=== PATIENT | male | born 1960 ===

== ENCOUNTER 2016-06-23 20:45 | Emergency (ER) | payer OTHER ==
[2016-06-23 21:01] VITALS: TEMP 98.5
[2016-06-23 21:05] VITALS: RESP 18; O2SAT 98
[2016-06-23 22:02] VITALS: BP 113/69; PULSE 78
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
== END 2016-06-23 22:29 | disposition home or self-care (01) ==
LOC: C.ER 20:45
DX: M25.511 Pain in right shoulder (principal); S20.211A Contusion of right front wall of thorax, initial encounter; Y08.89XA Assault by other specified means, initial encounter

== ENCOUNTER 2016-07-06 12:51 | Emergency (ER) | payer SELFPAY ==
[2016-07-06 13:18] VITALS: RESP 18
--- NOTE | 2016-07-06 14:08 | RAD ---
PROCEDURE: Right Knee Radiographs. HISTORY: fall/pain/swelling COMPARISON: None. FINDINGS: BONES: There is an acute nondisplaced fracture in the lateral tibial plateau. Bone alignment and mineralization are normal. There is an old avulsion fracture in the tibial tuberosity PICC JOINTS: Normal. No osteoarthritis. JOINT EFFUSION: There is a moderate suprapatellar joint effusion. . OTHER FINDINGS: None. IMPRESSION: Acute nondisplaced fracture in the lateral tibial plateau and moderate suprapatellar joint effusion.
--- NOTE | 2016-07-06 15:30 | C.PDOC ---
History Of Present Illness 56 year old male presents to the ED with complaints of right knee pain for the past 2 weeks. Patient states he fell 2 weeks ago and was seen here for shoulder pain however the pain to his knee developed after. He is able to walk and notes the knee became swollen and the pain has not improved which prompted his visit. Denies change in sensation, back pain, or any other complaints at this time. Chief Complaint (Nursing): Lower Extremity Problem/Injury History Per: Patient History/Exam Limitations: no limitations Onset/Duration Of Symptoms: Days Current Symptoms Are (Timing): Still Present Severity: Mild - Knee Description Of Injury: Fell Past Medical History Reviewed: Historical Data, Nursing Documentation, Vital Signs Vital Signs: Last Vital Signs Temp 98.5 F 07/06/16 16:33 Pulse 78 07/06/16 16:33 Resp 18 07/06/16 16:33 BP 124/78 07/06/16 16:33 Pulse Ox 97 07/06/16 17:41 Surgical History: Appendectomy Family History: States: Unknown Family Hx - Social History Hx Tobacco Use: Yes Hx Alcohol Use: No Hx Substance Use: No - Immunization History Hx Tetanus Toxoid Vaccination: Yes Hx Influenza Vaccination: No Hx Pneumococcal Vaccination: Yes Review Of Systems Except As Marked, All Systems Reviewed And Found Negative. Constitutional: Negative for: Fever, Chills Musculoskeletal: Positive for: Other (+Right knee pain). Negative for: Back Pain Neurological: Negative for: Weakness, Numbness Physical Exam - Physical Exam Appears: Non-toxic, No Acute Distress Skin: Normal Color, Warm, Dry Head: Atraumatic, Normacephalic Eye(s): bilateral: Normal Inspection Oral Mucosa: Moist Extremity: No Normal ROM (Difficulty bending right knee), Tenderness (+ tenderness to the right superior lateral knee), Calf Tenderness (+Right calf tenderness), Capillary Refill (< 2 seconds), No Deformity, Swelling (+Swelling to the right superior lateral knee) Pulses: Left Dorsalis Pedis: Normal, Right Dorsalis Pedis: Normal Neurological/Psych: Oriented x3, Normal Speech, Normal Cognition, Normal Sensation ED Course And Treatment O2 Sat by Pulse Oximetry: 97 (Room air) Pulse Ox Interpretation: Normal - Other Rad Left Knee X-ray X-Ray: Viewed By Me, Read By Radiologist Interpretation: Accession No. : [id number]. Patient Name / ID : LATONIA BERNARD / [id number]. Exam Date : 07/06/2016 13:37:59 ( Approved ). Study Comment : Sex / Age : M / 56Y. Creator : Gladis Borges MD. Dictator : Gladis Borges MD. Clock Smith : Bus Cleaner : Gladis Borges MD. Approver2 : Report Date : 07/06/2016 14:06:16. My Comment : . PROCEDURE: Right Knee Radiographs. HISTORY: fall/pain/swelling. COMPARISON: None. FINDINGS: BONES: There is an acute nondisplaced fracture in the lateral tibial plateau. Bone alignment and mineralization are normal. There is an old avulsion fracture in the tibial tuberosity PICC. JOINTS: Normal. No osteoarthritis. JOINT EFFUSION: There is a moderate suprapatellar joint effusion. . OTHER FINDINGS: None. IMPRESSION: Acute nondisplaced fracture in the lateral tibial plateau and moderate suprapatellar joint effusion. - CT Scan/US CT Right Knee Other Rad Studies (CT/US): Read By Radiologist, Radiology Report Reviewed CT/US Interpretation: Accession No. : [id number]. Patient Name / ID : LATONIA BERNARD / [id number]. Exam Date : 07/06/2016 16:16:02 ( Approved ). Study Comment : Sex / Age : M / 56Y. Creator : Kavon Koch MD. Dictator : Kavon Koch MD. Clock Smith : Bus Cleaner : Kavon Koch MD. Approver2 : Report Date : 07/06/2016 16:41:25. My Comment : . PROCEDURE : CT right knee. HISTORY: fracture. COMPARISON: None available. TECHNIQUE : 2.5 mm contiguous axial sections were acquired through the right knee. Sagittal and coronal images were reformatted from the axial scan. FINDINGS: There is no acute fracture identified. There is mild tricompartmental osteoarthritis. There are no articular erosions. There is a moderate suprapatellar bursal effusion. This may indicate internal derangement. IMPRESSION: No acute fracture. Mild tricompartmental osteoarthritis. Moderate suprapatellar joint effusion. Progress Note: Right Knee X-ray and Venous Duplex ordered and reviewed. Patient treated with Motrin. Venous Duplex negative for DVT by electronics tech. Case discussed with Dr. Singh (Ortho on-call) who requested a CT of the right knee and discharging the patient with a knee immoblizer and non-weight bearing crutches. Patietn can follow up at the clinic. Immobilizer applied by the CP and checked by me. Crutches given by PT and patient instructed on their proper use. Case discussed with Dr. Singh Disposition - Disposition Referrals: Gaby Singh MD [Staff Provider] - [facility] [Outside] [facility] [Outside] [facility] [Outside] Disposition: HOME/ ROUTINE Disposition Time: 15:30 Condition: STABLE Additional Instructions: Follow up with Orthopedist within 1-2 days. Return to ED if feel worse. Prescriptions: Hydrocodone/Acetaminophen [Hydrocodon-Acetaminophen 5-325] 1 each PO .Q4-6H #20 tablet Instructions: Knee Immobilizer (ED) - Clinical Impression Clinical Impression: Fracture of tibial plateau, closed - PA / ANALYSIS REPORTING DEVELOPER / Resident Statement MD/DO has reviewed & agrees with the documentation as recorded. - Scribe Statement The provider has reviewed the documentation as recorded by the Scribe Avtar Wadsworth. All medical record entries made by the Greyibjaclyn were at my direction and personally dictated by me. I have reviewed the chart and agree that the record accurately reflects my personal performance of the history, physical exam, medical decision making, and the department course for this patient. I have also personally directed, reviewed, and agree with the discharge instructions and disposition.
[2016-07-06 16:33] VITALS: BP 124/78; PULSE 78; TEMP 98.5
--- NOTE | 2016-07-06 16:42 | CT ---
PROCEDURE: CT right knee HISTORY: fracture COMPARISON: None available TECHNIQUE: 2.5 mm contiguous axial sections were acquired through the right knee. Sagittal and coronal images were reformatted from the axial scan. FINDINGS: There is no acute fracture identified. There is mild tricompartmental osteoarthritis. There are no articular erosions. There is a moderate suprapatellar bursal effusion. This may indicate internal derangement. IMPRESSION: No acute fracture. Mild tricompartmental osteoarthritis. Moderate suprapatellar joint effusion.
[2016-07-06 17:02] VITALS: O2SAT 97
--- NOTE | 2016-07-07 10:45 | VASCLAB ---
PROCEDURE: Right Lower Extremity Venous Duplex Exam. HISTORY: Pain and swelling PRIORS: None. TECHNIQUE: Right common femoral, femoral, popliteal and posterior tibial, peroneal and great saphenous veins were evaluated. Flow was assessed with color Doppler, compressibility, assessment of phasic flow and augmentation response. Report prepared by DEMETRIA Knight FINDINGS: RIGHT: 1. Common Femoral Vein: 1.1. Compressibility - Fully compressible: Thrombus - None: Flow - Phasic: Augmentation -Normal: Reflux - None. 2. Femoral Vein: 2.1. Compressibility - Fully compressible: Thrombus - None: Flow - Phasic: Augmentation -Normal: Reflux - None. 3. Popliteal Vein: 3.1. Compressibility - Fully compressible: Thrombus - None: Flow - Phasic: Augmentation -Normal: Reflux - None. 4. Posterior Tibial Vein: 4.1. Compressibility - Fully compressible: Thrombus - None: Flow - Phasic: Augmentation -Normal: Reflux - None. 5. Peroneal Vein: 5.1. Compressibility - Fully compressible: Thrombus - None: Flow - Phasic: Augmentation -Normal: Reflux - None. 6. Great Saphenous Vein: 6.1. Compressibility - Fully compressible: Thrombus -None: Flow - Phasic: Augmentation - Normal: Reflux - None. OTHER FINDINGS: IMPRESSION: No evidence of deep or superficial vein thrombosis of the right lower extremity with excellent venous flow. Normal valve function noted of the right side. Normal venous flow noted in the left common femoral vein.
== END 2016-07-06 16:34 | disposition home or self-care (01) ==
LOC: C.ER 12:51
DX: S82.144A Nondisplaced bicondylar fracture of right tibia, initial encounter for closed fracture (principal); W19.XXXA Unspecified fall, initial encounter
CPT/HCPCS: 73562; 73700; 93971; 97116; 97161; 99285; G8978; G8979; G8980

== ENCOUNTER 2016-10-11 12:26 | Emergency (ER) | payer OTHER ==
[2016-10-11 12:42] VITALS: O2SAT 97
[2016-10-11] MEDS ORDERED: Naproxen 550 mg Tab PO STA (13:16)
[2016-10-11] MEDS ORDERED: Naproxen 550 mg Tab PO ONE (13:19)
--- NOTE | 2016-10-11 13:48 | C.PDOC ---
History Of Present Illness 56 y/o male presents to ED with complaints of bilateral knee pain constant for 1 month worse with ambulation. Patient denies fever, falls, injuries and admits to not seeing PMD or taking pain medications. Time Seen by Provider: 10/11/16 13:00 Chief Complaint (Nursing): Lower Extremity Problem/Injury History Per: Patient History/Exam Limitations: no limitations Onset/Duration Of Symptoms: Days Current Symptoms Are (Timing): Still Present Past Medical History Reviewed: Historical Data, Nursing Documentation, Vital Signs Vital Signs: Last Vital Signs Temp 97.7 F 10/11/16 14:30 Pulse 77 10/11/16 14:30 Resp 18 10/11/16 14:30 BP 108/73 10/11/16 14:30 Pulse Ox 97 10/11/16 14:30 Surgical History: Appendectomy Family History: States: Unknown Family Hx - Social History Hx Tobacco Use: Yes Hx Alcohol Use: No Hx Substance Use: No - Immunization History Hx Tetanus Toxoid Vaccination: Yes Hx Influenza Vaccination: Yes Hx Pneumococcal Vaccination: Yes Review Of Systems Except As Marked, All Systems Reviewed And Found Negative. Constitutional: Negative for: Fever, Chills Musculoskeletal: Positive for: Leg Pain Skin: Negative for: Rash Neurological: Negative for: Weakness, Numbness Physical Exam - Physical Exam Appears: Other (Comfortable) Skin: Normal Color, Warm, No Rash Head: Atraumatic, Normacephalic Cardiovascular: Rhythm Regular, No Murmur Respiratory: Normal Breath Sounds, No Rales, No Rhonchi, No Wheezing Extremity: Tenderness (mild tenderness to palpation bilateral patellar area), Capillary Refill (<2 seconds), No Deformity, No Swelling Pulses: Left Dorsalis Pedis: Normal, Right Dorsalis Pedis: Normal Neurological/Psych: Oriented x3, Normal Motor, Normal Sensation ED Course And Treatment O2 Sat by Pulse Oximetry: 97 (RA) Pulse Ox Interpretation: Normal - Other Rad knee X-Ray: Viewed By Me, Read By Radiologist Interpretation: Accession No. : [id number]. Patient Name / ID : LATONIA BERNARD / [id number]. Exam Date : 10/11/2016 13:24:03 ( Approved ). Study Comment : Sex / Age : M / 56Y. Creator : Yoselin Garcia MD. Dictator : Yoselin Garcia MD. [employer] : Chairperson Anesthesiology : Yoselin Garcia MD. Approver2 : Report Date : 10/11/2016 14:22:12. My Comment : . PROCEDURE: Bilateral Knee Radiographs. HISTORY: B/L knee pain. COMPARISON: None available. FINDINGS: BONES: Right Knee: No acute displaced fracture identified. Left Knee: No acute displaced fracture identified. JOINTS: Right Knee: No dislocation. Joint space narrowing most prominent laterally. Left knee: No dislocation. Joint space narrowing most prominent laterally. SOFT TISSUES: Right Knee: Normal. Left Knee: Normal. JOINT EFFUSION: Right Knee: Small to moderate suprapatellar joint effusion. Left Knee: Small to moderate suprapatellar joint effusion. OTHER FINDINGS: None. IMPRESSION: Degenerative changes. Joint space narrowing appears most prominent laterally, both left and right knees. Bilateral small to moderate suprapatellar joint effusions. Progress Note: Patient given Naproxen and instructed to follow up with Ortho Disposition Counseled Patient/Family Regarding: Studies Performed, Diagnosis, Need For Followup, Rx Given - Disposition Referrals: [facility] [Outside] [facility] [Outside] [facility] [Outside] Hay Ruano III, MD [Staff Provider] - Disposition: HOME/ ROUTINE Disposition Time: 14:25 Condition: STABLE Additional Instructions: FOLLOW UP WITH ORTHPEDICS WITHIN 1 WEEK USE MEDICATIONS FOR PAIN NEEDED RETURN TO ER IF SYMPTOMS WORSEN Prescriptions: Naproxen [Naprosyn Tab] 375 mg PO BID PRN #20 tab PRN Reason: pain Instructions: Osteoarthritis (ED) Print Language: SYRIAC - Clinical Impression Clinical Impression: Arthritis of knee - Scribe Statement The provider has reviewed the documentation as recorded by the Veronica Ruano All medical record entries made by the Greyibjaclyn were at my direction and personally dictated by me. I have reviewed the chart and agree that the record accurately reflects my personal performance of the history, physical exam, medical decision making, and the department course for this patient. I have also personally directed, reviewed, and agree with the discharge instructions and disposition.
--- NOTE | 2016-10-11 14:24 | RAD ---
PROCEDURE: Bilateral Knee Radiographs. HISTORY: B/L knee pain COMPARISON: None available FINDINGS: BONES: Right Knee: No acute displaced fracture identified. Left Knee: No acute displaced fracture identified. JOINTS: Right Knee: No dislocation. Joint space narrowing most prominent laterally. Left knee: No dislocation. Joint space narrowing most prominent laterally. SOFT TISSUES: Right Knee: Normal. Left Knee: Normal. JOINT EFFUSION: Right Knee: Small to moderate suprapatellar joint effusion. Left Knee: Small to moderate suprapatellar joint effusion. OTHER FINDINGS: None. IMPRESSION: Degenerative changes. Joint space narrowing appears most prominent laterally, both left and right knees. Bilateral small to moderate suprapatellar joint effusions.
[2016-10-11 14:44] VITALS: BP 108/73; PULSE 77; RESP 18; TEMP 97.7
== END 2016-10-11 14:30 | disposition home or self-care (01) ==
LOC: C.ER 12:26
DX: M13.862 Other specified arthritis, left knee (principal); M13.861 Other specified arthritis, right knee

== ENCOUNTER 2017-11-06 17:37 | Emergency (ER) | payer OTHER ==
[2017-11-06 18:15] VITALS: O2SAT 98
--- NOTE | 2017-11-06 19:28 | C.PDOC ---
History Of Present Illness 57 y/o male presents to the emergency department with complaints of a lesion over the medial aspect of his right forearm after working in a garden earlier today. Denies fever or chills. Time Seen by Provider: 11/06/17 19:28 Chief Complaint (Nursing): Abnormal Skin Integrity History Per: Patient History/Exam Limitations: no limitations Onset/Duration Of Symptoms: Hrs Current Symptoms Are (Timing): Still Present Location Of Injury: Right: Forearm Quality Of Symptoms: Other (Lesions) Severity: Mild Pain Scale Rating Of: 3 Recent travel outside of the [place]: No Additional History Per: Patient Past Medical History Reviewed: Historical Data, Nursing Documentation, Vital Signs Vital Signs: Last Vital Signs Temp 98.3 F 11/06/17 18:12 Pulse 75 11/06/17 18:12 Resp 18 11/06/17 18:12 BP 121/74 11/06/17 18:12 Pulse Ox 98 11/06/17 20:39 Surgical History: Appendectomy Family History: States: No Known Family Hx - Social History Hx Tobacco Use: Yes Hx Alcohol Use: No Hx Substance Use: No - Immunization History Hx Tetanus Toxoid Vaccination: Yes Hx Influenza Vaccination: Yes Hx Pneumococcal Vaccination: Yes Review Of Systems Constitutional: Negative for: Fever, Chills Cardiovascular: Negative for: Chest Pain Respiratory: Negative for: Shortness of Breath Gastrointestinal: Negative for: Nausea, Vomiting Skin: Positive for: Lesions (Medial aspect of right forearm). Negative for: Rash Neurological: Negative for: Weakness, Numbness Physical Exam - Physical Exam Appears: Non-toxic Skin: Warm, Dry, Other (Three 1.5x2cm vesicles with dried exudates over the medial aspect of right forearm ) Head: Normacephalic Eye(s): bilateral: Normal Inspection Extremity: Capillary Refill (less than 2 seconds), Other (full ROM of right forearm) Pulses: Left Radial: Normal, Right Radial: Normal Neurological/Psych: Oriented x3 ED Course And Treatment - Laboratory Results Result Diagrams: 11/06/17 20:45 11/06/17 20:45 O2 Sat by Pulse Oximetry: 98 (RA) Pulse Ox Interpretation: Normal Progress Note: Labs ordered. solumedrol administered. Medical Decision Making Medical Decision Making: Upon provider reevaluation patient is feeling better, is medically stable, and requires no further treatment in the ED at this time. Patient will be discharged home with Rx for prednisone . Counseling was provided and all questions were answered regarding diagnosis and need for follow up with dr sandoval. There is agreement to discharge plan. Return if symptoms persist or worsen. Disposition Counseled Patient/Family Regarding: Studies Performed, Diagnosis, Need For Followup, Rx Given - Disposition Referrals: Gini Sandoval MD [Medical Doctor] - Disposition: HOME/ ROUTINE Disposition Time: 19:28 Condition: FAIR Additional Instructions: Please return if symptoms recur Prescriptions: Prednisone [Deltasone] 20 mg PO DAILY #5 tablet Instructions: Poison Deepti, Poison [place], Poison [place] (DC) Forms: [employer] (Citizen [place] - Clinical Impression Clinical Impression: Skin lesion, Poison oak dermatitis - Scribe Statement The provider has reviewed the documentation as recorded by the Veronica Mcgarry Provider Attestation: All medical record entries made by the Veronica were at my direction and personally dictated by me. I have reviewed the chart and agree that the record accurately reflects my personal performance of the history, physical exam, medical decision making, and the department course for this patient. I have also personally directed, reviewed, and agree with the discharge instructions and disposition.
[2017-11-06 20:50] LABS: BASO # 0.1 K/uL (0.0-0.2); BASO % 0.7 % (0.0-2.0); EOS # 0.4 K/uL (0.0-0.7); EOS % 3.6 % (0.0-4.0); HEMOGLOBIN 15.1 g/dL (12.0-18.0); LYMPH # 4.5 K/uL (1.0-4.3); LYMPH % 40.4 % (20.0-40.0); MEAN CELL VOLUME 95.2 fL (80.0-94.0); MEAN CORPUSCULAR HEMOGLOBIN 32.2 pg (27.0-31.0); MEAN CORPUSCULAR HGB CONC 33.8 g/dL (33.0-37.0); MEAN PLATELET VOLUME 7.5 fL (7.2-11.7); MONO # 0.7 K/uL (0.0-0.8); MONO % 6.2 % (0.0-10.0); NEUT # 5.4 K/uL (1.8-7.0); NEUT % 49.1 % (50.0-75.0); NRBC % 0.1 % (0.0-2.0); RBC 4.68 Mil/uL (4.40-5.90); RED CELL DISTRIBUTION WIDTH 13.3 % (11.5-14.5); WHITE BLOOD COUNT 11.1 K/uL (4.8-10.8)
[2017-11-06 21:06] LABS: BLOOD UREA NITROGEN 19 mg/dL (9-20); CALCIUM 8.9 mg/dl (8.6-10.4); GFR AFRICAN-AMERICAN > 60; GFR NON-AFRICAN AMERICAN > 60
[2017-11-06 21:44] VITALS: BP 120/73; PULSE 76; RESP 17; TEMP 98.2
== END 2017-11-06 21:48 | disposition home or self-care (01) ==
LOC: C.ER 17:37
DX: L23.7 Allergic contact dermatitis due to plants, except food (principal); L98.9 Disorder of the skin and subcutaneous tissue, unspecified; Z72.0 Tobacco use

== ENCOUNTER 2017-11-11 15:44 | Emergency (ER) | payer OTHER ==
[2017-11-11 15:53] VITALS: O2SAT 98
--- NOTE | 2017-11-11 16:48 | C.PDOC ---
History Of Present Illness 57 year old male presents to ED complaining of abdominal pain to left upper quadrant. Patient reports the pain occurs 45 minutes after each meal for the past 3 weeks. He states he is afraid to eat because of the pain that will come 45 minutes afterwards. Denies nausea, vomiting, diarrhea, dysuria, fever, hematuria, shortness of breath. Time Seen by Provider: 11/11/17 16:05 Chief Complaint (Nursing): Abdominal Pain History Per: Patient History/Exam Limitations: no limitations Onset/Duration Of Symptoms: Days Current Symptoms Are (Timing): Still Present Location Of Pain/Discomfort: LUQ Associated Symptoms: denies: Fever, Nausea, Vomiting, Diarrhea Recent travel outside of the [place]: No Past Medical History Reviewed: Historical Data, Nursing Documentation, Vital Signs Vital Signs: Last Vital Signs Temp 98.6 F 11/11/17 15:51 Pulse 82 11/11/17 15:51 Resp 18 11/11/17 15:51 BP 102/61 11/11/17 15:51 Pulse Ox 98 11/11/17 16:55 Surgical History: Appendectomy Family History: States: No Known Family Hx - Social History Hx Tobacco Use: Yes Hx Alcohol Use: No Hx Substance Use: No - Immunization History Hx Tetanus Toxoid Vaccination: Yes Hx Influenza Vaccination: Yes Hx Pneumococcal Vaccination: Yes Review Of Systems Except As Marked, All Systems Reviewed And Found Negative. Constitutional: Negative for: Fever Respiratory: Negative for: Shortness of Breath Gastrointestinal: Positive for: Abdominal Pain (left upper quadrant). Negative for: Nausea, Vomiting, Diarrhea Genitourinary: Negative for: Dysuria, Hematuria Neurological: Negative for: Weakness, Numbness Physical Exam - Physical Exam Appears: Non-toxic, No Acute Distress Skin: Warm, Dry Head: Atraumatic, Normacephalic Eye(s): bilateral: Normal Inspection, PERRL, EOMI Oral Mucosa: Moist Neck: Supple Chest: Symmetrical Cardiovascular: Rhythm Regular Respiratory: Normal Breath Sounds Gastrointestinal/Abdominal: Soft, No Tenderness Extremity: Normal ROM Neurological/Psych: Oriented x3, Normal Speech, Normal Motor, Normal Sensation Gait: Steady ED Course And Treatment - Laboratory Results Result Diagrams: 11/11/17 17:13 11/11/17 17:13 O2 Sat by Pulse Oximetry: 98 (RA) Pulse Ox Interpretation: Normal Medical Decision Making Medical Decision Making: Impression: abdominal pain Patient with no pain throughout ED course. Exam is benign. Labs done, leukocytosis noted however other labs are within normal limits. Rx written for Pepcid and patient referred to GI, as he may have GERD or gastric ulcer. Results and plan discussed with patient who verbalizes understanding. Disposition - Disposition Referrals: Oleg Mcdermott MD [Staff Provider] - Disposition: HOME/ ROUTINE Disposition Time: 18:48 Condition: GOOD Additional Instructions: JOANA LINCOLN, thank you for letting us take care of you today. Your provider was Rita Nolen MD and you were treated for ABD PAIN. The emergency medical care you received today was directed at your acute symptoms. If you were prescribed any medication, please fill it and take as directed. It may take several days for your symptoms to resolve. Return to the Emergency Department if your symptoms worsen, do not improve, or if you have any other problems. Please contact your doctor or call one of the physicians/clinics you have been referred to that are listed on the Patient Visit Information form that is included in your discharge packet. Bring any paperwork you were given at discharge with you along with any medications you are taking to your follow up visit. Our treatment cannot replace ongoing medical care by a primary care provider outside of the emergency department. Thank you for allowing the [facility] team to be part of your care today. If you had an X-Ray or CT scan: A Radiologist will review the ED reading if any change in treatment is needed we will contact you. If you had a blood, urine, or wound culture: It will take several days for the results, if any change in treatment is needed we will contact you. If you had an STI test: It will take 48 hours for the results. Please call after 1 week if you have not heard back. Prescriptions: Famotidine [Pepcid] 40 mg PO DAILY #20 tablet Instructions: Gastric Ulcer (DC) Forms: [employer] (Mohawk) - Clinical Impression Clinical Impression: LUQ abdominal pain - Scribe Statement The provider has reviewed the documentation as recorded by the Scribe Patric Celestino Provider Attestation: JOANA LINCOLN, thank you for letting us take care of you today. Your provider was Rita Nolen MD and you were treated for ABD PAIN. The emergency medical care you received today was directed at your acute symptoms. If you were prescribed any medication, please fill it and take as directed. It may take several days for your symptoms to resolve. Return to the Emergency Department if your symptoms worsen, do not improve, or if you have any other problems. Please contact your doctor or call one of the physicians/clinics you have been referred to that are listed on the Patient Visit Information form that is included in your discharge packet. Bring any paperwork you were given at discharge with you along with any medications you are taking to your follow up visit. Our treatment cannot replace ongoing medical care by a primary care provider outside of the emergency department. Thank you for allowing the [facility] team to be part of your care today. If you had an X-Ray or CT scan: A Radiologist will review the ED reading if any change in treatment is needed we will contact you. If you had a blood, urine, or wound culture: It will take several days for the results, if any change in treatment is needed we will contact you. If you had an STI test: It will take 48 hours for the results. Please call after 1 week if you have not heard back.
[2017-11-11 17:20] LABS: BASO # 0.1 K/uL (0.0-0.2); BASO % 0.5 % (0.0-2.0); EOS # 0.3 K/uL (0.0-0.7); EOS % 2.3 % (0.0-4.0); HEMOGLOBIN 14.7 g/dL (12.0-18.0); LYMPH # 3.7 K/uL (1.0-4.3); LYMPH % 27.2 % (20.0-40.0); MEAN CELL VOLUME 94.8 fL (80.0-94.0); MEAN CORPUSCULAR HEMOGLOBIN 32.5 pg (27.0-31.0); MEAN CORPUSCULAR HGB CONC 34.3 g/dL (33.0-37.0); MEAN PLATELET VOLUME 7.4 fL (7.2-11.7); MONO # 0.5 K/uL (0.0-0.8); MONO % 3.8 % (0.0-10.0); NEUT % 66.2 % (50.0-75.0); RBC 4.51 Mil/uL (4.40-5.90); RED CELL DISTRIBUTION WIDTH 13.8 % (11.5-14.5); WHITE BLOOD COUNT 13.6 K/uL (4.8-10.8)
[2017-11-11 17:37] LABS: BLOOD UREA NITROGEN 19 mg/dL (9-20); GFR NON-AFRICAN AMERICAN > 60; LIPASE 68 U/L (23-300)
[2017-11-11 18:50] VITALS: BP 138/89; PULSE 84; RESP 20; TEMP 98.2
== END 2017-11-11 19:33 | disposition home or self-care (01) ==
LOC: C.ER 15:44
DX: R10.12 Left upper quadrant pain (principal)

== ENCOUNTER 2018-02-03 08:14 | Emergency (ER) | payer OTHER ==
[2018-02-03 08:34] VITALS: PULSE 63; RESP 16
[2018-02-03] MEDS ORDERED: Sodium Chloride 0.9% 1,000 ML IV ONE (08:39)
--- NOTE | 2018-02-03 08:46 | C.PDOC ---
History Of Present Illness 57 y/o male, with no significant PMHx, presents to ED for evaluation of dizziness and lightheadedness for the past 2 weeks. Notes dizziness is worse when standing up. Pt denies being seen by his PMD for these symptoms. Otherwise, denies headache, fever, or any other associated symptoms at this time. Time Seen by Provider: 02/03/18 08:37 Chief Complaint (Nursing): Dizziness/Lightheaded History Per: Patient History/Exam Limitations: no limitations Onset/Duration Of Symptoms: Days Current Symptoms Are (Timing): Still Present Recent travel outside of the [place]: No Additional History Per: Patient Past Medical History Reviewed: Historical Data, Nursing Documentation, Vital Signs Vital Signs: Last Vital Signs Temp 97.9 F 02/03/18 08:32 Pulse 63 02/03/18 08:32 Resp 16 02/03/18 08:32 BP 118/67 02/03/18 08:32 Pulse Ox 95 02/03/18 08:32 Surgical History: Appendectomy Family History: States: Unknown Family Hx - Social History Hx Tobacco Use: Yes Hx Alcohol Use: No Hx Substance Use: No - Immunization History Hx Tetanus Toxoid Vaccination: Yes Hx Influenza Vaccination: Yes Hx Pneumococcal Vaccination: Yes Review Of Systems Except As Marked, All Systems Reviewed And Found Negative. Constitutional: Negative for: Fever, Chills Cardiovascular: Positive for: Light Headedness. Negative for: Chest Pain, Palpitations Respiratory: Negative for: Cough, Shortness of Breath Gastrointestinal: Negative for: Nausea, Vomiting, Abdominal Pain Neurological: Positive for: Dizziness. Negative for: Weakness, Numbness, Headache Physical Exam - Physical Exam Appears: Non-toxic, No Acute Distress Skin: Normal Color, Warm, Dry Head: Atraumatic, Normacephalic Eye(s): bilateral: Normal Inspection Oral Mucosa: Moist Neck: Normal ROM, Supple Chest: Symmetrical Cardiovascular: Rhythm Regular, No Murmur Respiratory: Normal Breath Sounds, No Rales, No Rhonchi, No Wheezing Gastrointestinal/Abdominal: Soft, No Tenderness Extremity: Normal ROM, No Pedal Edema Neurological/Psych: Oriented x3, Normal Speech, Normal Cognition, No Other (no focal deficits) ED Course And Treatment - Laboratory Results Result Diagrams: 02/03/18 09:10 02/03/18 09:10 ECG: Interpreted By Me, Viewed By Me ECG Rhythm: Sinus Rhythm ECG Interpretation: Normal Interpretation Of ECG: No ST/T wave changes. Rate From EC (bpm) O2 Sat by Pulse Oximetry: 95 (RA) Pulse Ox Interpretation: Normal Medical Decision Making Medical Decision Making: ro metaoblic infectious cardiac intrancial eitology Plan: Blood work Urinalysis EKG IV fluids On re-eval, pt is resting comfortably, no acute distress. He reports feeling better. Pt is ambulatory in the ER, no signs of discomfort. pt notified of ct findings advise outpt fu with neuro. agrees to fu. return precuaitons advised. Disposition - Disposition Referrals: [facility] [Outside] [facility] [Outside] Ruslan Hilario MD [Staff Provider] - Alex Mena MD [Staff Provider] - Disposition: HOME/ ROUTINE Disposition Time: 10:30 Condition: STABLE Additional Instructions: please return to er with worsening symptoms or concenrs. please see your doctor/clinic. Instructions: Dizziness, Nonvertigo, (DC) Forms: [employer] (Cameroonian) - Clinical Impression Clinical Impression: Dizziness - Scribe Statement The provider has reviewed the documentation as recorded by the Scribe KP All medical record entries made by the Scribe were at my direction and pers onally dictated by me. I have reviewed the chart and agree that the record accurately reflects my personal performance of the history, physical exam, medical decision making, and the department course for this patient. I have also personally directed, reviewed, and agree with the discharge instructions and disposition.
[2018-02-03 09:15] LABS: BASO # 0.1 K/uL (0.0-0.2); BASO % 1.2 % (0.0-2.0); EOS # 0.3 K/uL (0.0-0.7); EOS % 3.3 % (0.0-4.0); HEMOGLOBIN 14.6 g/dL (12.0-18.0); LYMPH % 34.5 % (20.0-40.0); MEAN CELL VOLUME 95.5 fL (80.0-94.0); MEAN CORPUSCULAR HEMOGLOBIN 32.9 pg (27.0-31.0); MEAN CORPUSCULAR HGB CONC 34.4 g/dL (33.0-37.0); MEAN PLATELET VOLUME 7.8 fL (7.2-11.7); MONO # 0.6 K/uL (0.0-0.8); MONO % 7.4 % (0.0-10.0); NEUT # 4.6 K/uL (1.8-7.0); NEUT % 53.6 % (50.0-75.0); RBC 4.43 Mil/uL (4.40-5.90); RED CELL DISTRIBUTION WIDTH 13.7 % (11.5-14.5); WHITE BLOOD COUNT 8.6 K/uL (4.8-10.8)
[2018-02-03 09:23] LABS: PROTHROMBIN TIME 11.3 SECONDS (9.7-12.2)
[2018-02-03 09:41] LABS: ALB/GLOB RATIO 1.2 (1.0-2.1); ALBUMIN 3.7 g/dL (3.5-5.0); ALT/SGPT 32 U/L (21-72); AST/SGOT 22 U/L (17-59); BLOOD UREA NITROGEN 24 mg/dL (9-20); CALCIUM 8.3 mg/dl (8.6-10.4); GFR NON-AFRICAN AMERICAN > 60
[2018-02-03 09:49] LABS: SQUAMOUS EPITHIAL < 1 /hpf (0-5); URINE BILIRUBIN NEGATIVE (NEGATIVE); URINE BLOOD 2+ (NEGATIVE); URINE CLARITY Clear (Clear); URINE COLOR Yellow (YELLOW); URINE GLUCOSE (UA) NORMAL (Normal); URINE LEUKOCYTE ESTERASE NEG Leu/uL (Negative); URINE PROTEIN NEGATIVE (NEGATIVE); URINE UROBILINOGEN NORMAL mg/dL (0.2-1.0)
[2018-02-03 10:41] VITALS: BP 106/77; TEMP 98.4
--- NOTE | 2018-02-03 10:52 | CT ---
Date of service: 02/03/2018 PROCEDURE: CT HEAD WITHOUT CONTRAST. HISTORY: dizziness COMPARISON: None available. TECHNIQUE: Axial computed tomography images were obtained through the head/brain without intravenous contrast. Radiation dose: Total exam DLP = 1166.57 mGy-cm. This CT exam was performed using one or more of the following dose reduction techniques: Automated exposure control, adjustment of the mA and/or kV according to patient size, and/or use of iterative reconstruction technique. FINDINGS: HEMORRHAGE: No acute parenchymal, subarachnoid or extra-axial hemorrhage.. BRAIN: There appears to be some minimal chronic periventricular white matter ischemic changes that extend peripherally into the deep white matter both cerebral hemispheres. Prominent right wing cisterna magna. VENTRICLES: No obstructive hydrocephalus. CALVARIUM: Calvarium intact PARANASAL SINUSES: Unremarkable as visualized. No significant inflammatory changes. MASTOID AIR CELLS: Unremarkable as visualized. No inflammatory changes. OTHER FINDINGS: None. IMPRESSION: No acute intracranial hemorrhage. Mild chronic periventricular white matter ischemic changes. Prominent right wing cisterna magna.
[2018-02-03 11:30] VITALS: O2SAT 95
== END 2018-02-03 11:49 | disposition home or self-care (01) ==
LOC: C.ER 08:14
DX: R42 Dizziness and giddiness (principal); Z72.0 Tobacco use
CPT/HCPCS: 70450; 80053; 81001; 84484; 85025; 85610; 85730; 96360; 99285; J7030

== ENCOUNTER 2018-06-29 09:02 | Emergency (ER) | payer OTHER ==
[2018-06-29 09:18] VITALS: RESP 18
--- NOTE | 2018-06-29 10:56 | C.PDOC ---
History Of Present Illness 58 year old male presents to ED with complaint of pain to the right side of his tongue. Patient states that he thinks that its a cyst and it is painful to eat. Patient denies fever, chills, throat swelling, and difficulty swallowing. Time Seen by Provider: 06/29/18 09:07 Chief Complaint (Nursing): Dental Pain History Per: Patient History/Exam Limitations: no limitations Current Symptoms Are (Timing): Still Present Quality: Positive for: "Pain" Past Medical History Reviewed: Historical Data, Nursing Documentation, Vital Signs Vital Signs: Last Vital Signs Temp 98 F 06/29/18 09:15 Pulse 74 06/29/18 09:15 Resp 18 06/29/18 09:15 BP 107/77 06/29/18 09:15 Pulse Ox 98 06/29/18 09:15 - Medical History PMH: No Chronic Diseases Surgical History: Appendectomy Family History: States: Unknown Family Hx - Social History Hx Tobacco Use: Yes Hx Alcohol Use: No Hx Substance Use: No - Immunization History Hx Tetanus Toxoid Vaccination: Yes Hx Influenza Vaccination: Yes Hx Pneumococcal Vaccination: Yes Review Of Systems Constitutional: Negative for: Fever, Chills, Weakness ENT: Negative for: Throat Swelling, Other (difficulty swallowing ) Neurological: Negative for: Weakness, Numbness, Dizziness Physical Exam - Physical Exam Appears: Well, Non-toxic, No Acute Distress Skin: Normal Color, Warm, Dry Head: Atraumatic, Normacephalic Tongue: Lesions (ulcerative lesion on the right side of the tongue that touches the teeth, no active bleeding, no signs of abscess), No Bleeding Teeth: Other (poor dentition, in the right side there are large cavities present with sharp edges to the 1st, 2nd, and 3rd molar ) Neck: Normal ROM, Supple Chest: Symmetrical, No Deformity Cardiovascular: Rhythm Regular, No Murmur Respiratory: No Accessory Muscle Use, No Rales, No Rhonchi, No Wheezing Extremity: Capillary Refill (<2 seconds) Neurological/Psych: Oriented x3, Normal Speech, Normal Cognition ED Course And Treatment O2 Sat by Pulse Oximetry: 98 (in RA) Progress Note: Patient given Cleocin PO. Patient given prescription for antibiotics. Upon re-eval, patient is resting comfortably, in no acute distress, and stable for discharge. Patient is advised to make an appointment with his dentist. Patient advised to return to ED if symptoms persist or worsen. Disposition - Disposition Disposition: HOME/ ROUTINE Disposition Time: 10:53 Condition: STABLE Additional Instructions: Follow up with your PMD/dentist within 1-2 days. return to ED if feel worse. Prescriptions: Clindamycin [Cleocin] 300 mg PO Q6 #28 cap Lidocaine 2% Viscous 1 ml MM .Q4-6H #1 bottle Chlorhexidine 0.12% [Peridex] 15 ml PO BID #1 bottle Instructions: Mouth Sores Forms: [employer] (Ukrainian) - Clinical Impression Clinical Impression: Dental caries, Leukoplakia of tongue - PA / ADVERTISING INTERN / Resident Statement MD/DO has reviewed & agrees with the documentation as recorded. (Ginger Herrera) - Scribe Statement The provider has reviewed the documentation as recorded by the Scribe (Ginger Herrera) All medical record entries made by the Scribe were at my direction and personally dictated by me. I have reviewed the chart and agree that the record accurately reflects my personal performance of the history, physical exam, medical decision making, and the department course for this patient. I have also personally directed, reviewed, and agree with the discharge instructions and disposition.
[2018-06-29 11:02] VITALS: BP 112/76; PULSE 68; TEMP 98.4
[2018-06-29 11:15] VITALS: O2SAT 98
== END 2018-06-29 11:03 | disposition home or self-care (01) ==
LOC: C.ER 09:02
DX: K02.9 Dental caries, unspecified (principal); K13.21 Leukoplakia of oral mucosa, including tongue; F17.210 Nicotine dependence, cigarettes, uncomplicated

== ENCOUNTER 2018-07-02 08:55 | Emergency (ER) | payer OTHER ==
[2018-07-02 09:08] VITALS: PULSE 86; RESP 18
--- NOTE | 2018-07-02 10:28 | C.PDOC ---
History Of Present Illness 58 y/o male presents to the ER complaining of new onset of midsternal chest pain which began when he woke up at 8:30 am. Patient states that the episode of pain lasted several minutes. Patient reports that the pain spontaneously resolved.He notes that he is now asymptomatic. He states that he is not on chronic medications. Currently, patient denies having chest pain, shortness of breath, fever,chills, nausea, vomiting, and leg swelling. Of note, patient was evaluated for dental infection in [facility] ER on 06/29/18 and he was discharged with prescriptions for Clindamycin and Viscous Lidocaine. Time Seen by Provider: 07/02/18 09:55 Chief Complaint (Nursing): Chest Pain History Per: Patient History/Exam Limitations: no limitations Onset/Duration Of Symptoms: Hrs Current Symptoms Are (Timing): Gone Severity: Moderate Past Medical History Reviewed: Historical Data, Nursing Documentation, Vital Signs Vital Signs: Last Vital Signs Temp 97.8 F 07/02/18 09:06 Pulse 86 07/02/18 09:06 Resp 18 07/02/18 09:06 BP 114/79 07/02/18 09:06 Pulse Ox 97 07/02/18 09:06 - Medical History PMH: No Chronic Diseases Surgical History: Appendectomy Family History: States: No Known Family Hx - Social History Hx Tobacco Use: Yes Hx Alcohol Use: No Hx Substance Use: No - Immunization History Hx Tetanus Toxoid Vaccination: Yes Hx Influenza Vaccination: Yes Hx Pneumococcal Vaccination: Yes Review Of Systems Except As Marked, All Systems Reviewed And Found Negative. Constitutional: Negative for: Fever, Chills Cardiovascular: Positive for: Chest Pain (currently resolved) Respiratory: Negative for: Shortness of Breath Gastrointestinal: Negative for: Nausea, Vomiting Physical Exam - Physical Exam Appears: Non-toxic, No Acute Distress Skin: Normal Color, Warm, Dry Head: Atraumatic, Normacephalic Eye(s): bilateral: Normal Inspection Nose: Normal Oral Mucosa: Moist Chest: Symmetrical, No Tenderness Cardiovascular: Rhythm Regular Respiratory: Normal Breath Sounds, No Rales, No Rhonchi, No Wheezing, Other (NARD) Neurological/Psych: Oriented x3, Normal Speech ED Course And Treatment - Laboratory Results Result Diagrams: 07/02/18 10:43 07/02/18 10:43 ECG: Interpreted By Me, Viewed By Me ECG Rhythm: Sinus Rhythm Rate From EC O2 Sat by Pulse Oximetry: 97 (RA) Pulse Ox Interpretation: Normal - Radiology CXR: Interpreted by Me, Viewed By Me CXR Interpretation: Yes: No Acute Disease, Other (unchanged from prior) Medical Decision Making Medical Decision Making: Plan: --Labs --ECG --CXR Disposition Counseled Patient/Family Regarding: Diagnosis, Need For Followup, Smoking Cessation - Disposition Referrals: [facility] [Outside] [facility] [Outside] Disposition: HOME/ ROUTINE Disposition Time: 11:34 Condition: GOOD Additional Instructions: FOLLOW UP WITH YOUR PMD OR CLINIC FOR FURTHER EVALUATION. RETURN IF RECURRENT/WORSENING SYMPTOMS. Instructions: Chest Pain (DC) Forms: [employer] (Setswana) - Clinical Impression Clinical Impression: Chest pain - Scribe Statement The provider has reviewed the documentation as recorded by the Greyibjaclyn Alfredo Provider Attestation: All medical record entries made by the Scribe were at my direction and personally dictated by me. I have reviewed the chart and agree that the record accurately reflects my personal performance of the history, physical exam, medical decision making, and the department course for this patient. I have also personally directed, reviewed, and agree with the discharge instructions and disposition.
[2018-07-02 10:48] LABS: BASO # 0.1 K/uL (0.0-0.2); EOS # 0.2 K/uL (0.0-0.7); EOS % 1.8 % (0.0-4.0); HEMOGLOBIN 15.3 g/dL (12.0-18.0); LYMPH # 2.9 K/uL (1.0-4.3); LYMPH % 27.1 % (20.0-40.0); MEAN CORPUSCULAR HEMOGLOBIN 32.7 pg (27.0-31.0); MEAN CORPUSCULAR HGB CONC 33.7 g/dL (33.0-37.0); MEAN PLATELET VOLUME 7.4 fL (7.2-11.7); MONO # 0.7 K/uL (0.0-0.8); MONO % 6.9 % (0.0-10.0); NEUT # 6.7 K/uL (1.8-7.0); NEUT % 63.2 % (50.0-75.0); NRBC % 0.1 % (0.0-2.0); RBC 4.68 Mil/uL (4.40-5.90); WHITE BLOOD COUNT 10.6 K/uL (4.8-10.8)
[2018-07-02 11:00] LABS: ALB/GLOB RATIO 1.6 (1.0-2.1); ALBUMIN 4.6 g/dL (3.5-5.0); ALT/SGPT 20 U/L (21-72); AST/SGOT 36 U/L (17-59); BLOOD UREA NITROGEN 21 mg/dL (9-20); CALCIUM 9.2 mg/dl (8.6-10.4); GFR NON-AFRICAN AMERICAN > 60; LIPASE 67 U/L (23-300)
[2018-07-02 11:46] VITALS: BP 126/70; TEMP 98
[2018-07-02 12:10] VITALS: O2SAT 97
--- NOTE | 2018-07-02 13:31 | RAD ---
Date of service: 07/02/2018 HISTORY: chest pain COMPARISON: 06/23/2016 TECHNIQUE: Chest PA and lateral views FINDINGS: LUNGS: No active pulmonary disease. PLEURA: No significant pleural effusion identified. No pneumothorax apparent. CARDIOVASCULAR: No aortic atherosclerotic calcification present. No radiographic findings to suggest acute or significant cardiovascular disease. OSSEOUS STRUCTURES: No significant abnormalities. VISUALIZED UPPER ABDOMEN: Normal. OTHER FINDINGS: None. IMPRESSION: No active disease. No significant interval change compared to the prior examination(s). Concordant results with the preliminary interpretation rendered by the emergency department physician procedure.
== END 2018-07-02 11:46 | disposition home or self-care (01) ==
LOC: C.ER 08:55
DX: R07.9 Chest pain, unspecified (principal)

== ENCOUNTER 2018-07-17 18:51 | Emergency (ER) | payer OTHER ==
[2018-07-17 19:02] VITALS: O2SAT 100
[2018-07-17] MEDS ORDERED: Sodium Chloride 0.9% 1,000 ML IV ONE (19:50)
--- NOTE | 2018-07-17 19:50 | C.PDOC ---
History Of Present Illness Patient presents to the ED c/o diarrhea for the past 2 weeks after taking Clindamycin he has been taking for a toothache. Patient not able to tolerate anything by mouth. Patient states he has green color watery stool, feels no appetite. Patient denies fever, chills, nausea, vomit, rash, dysuria, hematuria, recent travel, sick contacts. Time Seen by Provider: 07/17/18 19:49 Chief Complaint (Nursing): GI Problem History Per: Patient History/Exam Limitations: no limitations Onset/Duration Of Symptoms: Days Current Symptoms Are (Timing): Still Present Context: Other Location Of Pain/Discomfort: Diffuse Quality Of Discomfort: "Pain" Associated Symptoms: Diarrhea, Loss Of Appetite. denies: Nausea, Vomiting, Constipation, Urinary Symptoms Exacerbating Factors: Other Recent travel outside of the [place]: No Additional History Per: Patient Past Medical History Reviewed: Historical Data, Nursing Documentation, Vital Signs Vital Signs: Last Vital Signs Temp 99.0 F 07/17/18 19:00 Pulse 78 07/17/18 19:00 Resp 18 07/17/18 19:00 BP 134/92 H 07/17/18 19:00 Pulse Ox 100 07/17/18 19:00 - Medical History PMH: No Chronic Diseases Surgical History: Appendectomy Family History: States: Unknown Family Hx - Social History Hx Tobacco Use: Yes Hx Alcohol Use: No Hx Substance Use: No - Immunization History Hx Tetanus Toxoid Vaccination: Yes Hx Influenza Vaccination: Yes Hx Pneumococcal Vaccination: Yes Review Of Systems Constitutional: Negative for: Fever, Chills Eyes: Negative for: Vision Change Cardiovascular: Negative for: Chest Pain Respiratory: Negative for: Shortness of Breath Gastrointestinal: Positive for: Abdominal Pain, Diarrhea. Negative for: Nausea, Vomiting Genitourinary: Negative for: Dysuria Musculoskeletal: Negative for: Back Pain Skin: Negative for: Rash Neurological: Negative for: Weakness, Numbness Physical Exam - Physical Exam Appears: Non-toxic, No Acute Distress Skin: Warm, Dry Head: Normacephalic Eye(s): bilateral: Normal Inspection Oral Mucosa: Moist Neck: Supple Chest: Symmetrical Cardiovascular: Rhythm Regular Respiratory: No Rales, No Rhonchi, No Wheezing Gastrointestinal/Abdominal: Soft, Tenderness (mild ), No Guarding, No Rebound Back: No CVA Tenderness Extremity: Bilateral: Atraumatic, Normal Color And Temperature, Normal ROM Neurological/Psych: Oriented x3, Normal Speech, Normal Cognition Gait: Steady ED Course And Treatment - Laboratory Results Result Diagrams: 07/17/18 20:29 07/17/18 20:29 ECG: Interpreted By Me, Viewed By Me ECG Rhythm: Sinus Rhythm (57), Nonspecific Changes O2 Sat by Pulse Oximetry: 100 (ON RA) Pulse Ox Interpretation: Normal Progress Note: Plan: - EKG. - Labs. - Protonix 40 mg IVP. - IV fluids. - UA Reevaluation Time: 23:04 Reassessment Condition: Improved Disposition Counseled Patient/Family Regarding: Studies Performed, Diagnosis, Need For Followup, Rx Given - Disposition Referrals: [facility] [Outside] [facility] [Outside] Disposition: HOME/ ROUTINE Disposition Time: 19:50 Condition: FAIR Additional Instructions: Please return if symptoms recur Prescriptions: L. Acidophilus/L. Rhamnosus [Probiotic 15 Billion Cell Cap] 1 each PO BID #30 capsule Metronidazole [Flagyl] 500 mg PO DAILY #21 tablet Naproxen [Naprosyn] 1 tab PO BID PRN #25 tab PRN Reason: Pain Instructions: Acute Abdomen (Belly Pain), Adult (DC), Antibiotic-Associated Diarrhea (DC) Forms: [employer] (Stateless) - Clinical Impression Clinical Impression: Ileitis, Antibiotic-associated diarrhea - Scribe Statement The provider has reviewed the documentation as recorded by the Scribe Branden Cooney All medical record entries made by the Scribe were at my direction and personally dictated by me. I have reviewed the chart and agree that the record accurately reflects my personal performance of the history, physical exam, medical decision making, and the department course for this patient. I have also personally directed, reviewed, and agree with the discharge instructions and disposition.
[2018-07-17] MEDS ORDERED: Sodium Chloride 0.9% 1,000 ML ONE (20:19)
[2018-07-17 20:36] LABS: BASO # 0.1 K/uL (0.0-0.2); EOS # 0.2 K/uL (0.0-0.7); EOS % 1.7 % (0.0-4.0); HEMOGLOBIN 13.7 g/dL (12.0-18.0); LYMPH # 4.2 K/uL (1.0-4.3); LYMPH % 37.7 % (20.0-40.0); MEAN CELL VOLUME 97.4 fL (80.0-94.0); MEAN CORPUSCULAR HEMOGLOBIN 32.6 pg (27.0-31.0); MEAN CORPUSCULAR HGB CONC 33.5 g/dL (33.0-37.0); MEAN PLATELET VOLUME 7.5 fL (7.2-11.7); MONO # 0.7 K/uL (0.0-0.8); NEUT # 5.9 K/uL (1.8-7.0); NEUT % 53.6 % (50.0-75.0); NRBC % 0.1 % (0.0-2.0); RBC 4.2 Mil/uL (4.40-5.90); RED CELL DISTRIBUTION WIDTH 13.7 % (11.5-14.5)
[2018-07-17 20:51] LABS: ALB/GLOB RATIO 1.5 (1.0-2.1); ALBUMIN 4.1 g/dL (3.5-5.0); ALT/SGPT 34 U/L (21-72); AST/SGOT 32 U/L (17-59); BLOOD UREA NITROGEN 21 mg/dL (9-20); CALCIUM 8.9 mg/dl (8.6-10.4); GFR NON-AFRICAN AMERICAN > 60; LIPASE 107 U/L (23-300)
[2018-07-17 20:58] LABS: INR 1.1; PROTHROMBIN TIME 12.5 SECONDS (9.7-12.2)
[2018-07-17] MEDS ORDERED: Iohexol 300 100 ML IJ ONE (21:14)
[2018-07-17 23:30] VITALS: BP 121/79; PULSE 76; RESP 20; TEMP 98.4
--- NOTE | 2018-07-18 10:13 | CT ---
Date of service: 07/17/2018 PROCEDURE: CT Abdomen and Pelvis with contrast HISTORY: abd pain, diarrhea COMPARISON: None. TECHNIQUE: Following the intravenous administration of iodinated contrast material, a CT examination of the abdomen and pelvis was performed from the domes of the diaphragms to the symphysis pubis with reformatted datasets provided in axial, sagittal and coronal planes. Oral contrast was not administered as per referring physician request. Contrast dose: Omnipaque 300, 100 cc Radiation dose: Total exam DLP = 1071.14 mGy-cm. This CT exam was performed using one or more of the following dose reduction techniques: Automated exposure control, adjustment of the mA and/or kV according to patient size, and/or use of iterative reconstruction technique. FINDINGS: LOWER THORAX: Unremarkable. LIVER: Unremarkable. No gross lesion or ductal dilatation. GALLBLADDER AND BILE DUCTS: Mild gallbladder distention is identified. Trace mural calcification is question at the posterior wall laterally. Normal appearing common bile duct caliber. PANCREAS: Unremarkable. No gross lesion or ductal dilatation. SPLEEN: Unremarkable. ADRENALS: Unremarkable. No mass. KIDNEYS AND URETERS: No obstructive uropathy bilaterally. 2.5 mm intrarenal calculus midpole right kidney as well as 4.5 mm intrarenal calculus lower pole right kidney. Punctate intrarenal calculus lower pole left kidney. Multiple tiny cortical lucencies are appreciate the right kidney too small to characterize. 1.6 cm simple cyst upper pole left kidney measuring 10 Hounsfield units with additional cyst measuring 7 Hounsfield units at the lower pole 1.7 cm greatest dimension. No perinephric reaction bilaterally. No definitive solid parenchymal mass bilaterally. VASCULATURE: Unremarkable. No aortic aneurysm. No aortic atherosclerotic calcification or mural plaque present. BOWEL: Limited sigmoid diverticulosis without diverticulitis.. No obstruction. No gross mural thickening. APPENDIX: Appendix not identified. No CT evidence of appendicitis. Consider possible prior appendectomy. PERITONEUM: Unremarkable. No free fluid. No free air. LYMPH NODES: Unremarkable. No enlarged lymph nodes. BLADDER: Completely decompressed. REPRODUCTIVE: Central prostate gland calcifications. No significant prostate gland enlargement appreciable. BONES: No acute fracture. OTHER FINDINGS: None. IMPRESSION: 1. Limited sigmoid diverticulosis without diverticulitis. 2. Nonobstructing intrarenal calculi identified bilaterally, with 2 small calculi at the right and 1 at the left kidney. Two simple cysts are identified at the left kidney. Multiple sub cm lucencies seen scattered at the right kidney's parenchyma too small to characterize. 3. No definite acute abdominal or pelvic findings. Discordant preliminary report from [facility] 07/14/2018, 10:51 p.m.. I do not see evidence of ileitis or hepatomegaly specifically.
--- NOTE | 2018-07-19 15:20 | CARD ---
APPROVED REPORT Date of service: 07/17/2018 EKG Measurement Heart [id number] <Conclusion> Sinus bradycardia Otherwise normal ECG
== END 2018-07-17 23:07 | disposition home or self-care (01) ==
LOC: C.ER 18:51
DX: K52.9 Noninfective gastroenteritis and colitis, unspecified (principal)
CPT/HCPCS: 74177; 80053; 83690; 85025; 85610; 85730; 93005; 96374; 96375; 99285; C9113; J1885; J7030; Q9967